=== PATIENT | female | born 2005 | race Caucasian/White ===

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

== ENCOUNTER 2024-05-02 16:33 | Emergency (ER) | payer BC ==
--- OUTSIDE RECORDS SUMMARY | 2024-05-02 16:35 | XMS REPORT | Continuity of Care Document ---
Author Name Unknown Address [address] [place] [address] [facility] Address [address] [place] [address] Care Team Providers Care Transformer Tester Name Role Phone VERONICA GARCIA Primary Care Physician Robyn CHERELLE Pan Attending Clinician Unavailable Cherelle Elizabeth MD Attending Clinician [phone] Unknown, Attending Attending Clinician Unavailab le [id number] Attending Clinician Unavailable RONALDO NOLEN Attending Clinician Unavailable MD JOANN Attending Clinician Unavailab AUSTIN Corcoran Attending Clinician Unavailable SHARAD LEON Attending Clinician Unavailable [email or web address]_Marti Attending Clinician Unavaila WALKER Aggarwal Attending Clinician UnavailPURVI Jackson Attending Clinician Unavailable Sharad Leon MD Attending Clinician [phone] Purvi Dobson PA-C Attending Clinician [phone] Doctor Unassigned, [place] Attending Clinician U MARGAUX Grant Attending Clinician Unavail able Walker Davis MD Attending Clinician [phone] Pob, Adc Lab Main Attending Clinician UnavailCONSUELO Black Attending Clinician Unavailable Consuelo Horowitz MD Attending Clinician [phone], [facility] Attending Clinician Unavailable [email or web address]_S Admitting Clinician Unavaila ble Payers Payer Name Policy Type Policy Number Effective Date Expirati on Date Source [facility] [id number] 2021 00:00:00 BC[employer] 2 [id number] 2023 00:00:00 Problems Condition Name Condition Details Condition Category Status Onset Date Resolution Date Last Treatment Date Treating Clinician Comments Source Weight gain Weight gain Disease Active 09-06 00:00: 00 Cindi griffin Family history of thyroid disease Family history of thyroid disease Disease Active 09-06 00:00: 00 Cindi griffin Nexplanon in place Nexplanon in place Disease Active 2021-0514 00:00: 00 [facility] Simple goiter Simple goiter Disease Active 9-16 00:00: 00 [facility] Elevated TSH Elevated TSH Disease Active 06-24 00:00: 00 [facility] Overweight peds (BMI 85-94.9 percentile ) Overweight peds (BMI 85-94.9 percentile ) Disease Active 06-24 00:00: 00 [facility] Family history of hypothyroi dism Family history of hypothyroi dism Disease Active 06-24 00:00: 00 [facility] Family history of autoimmune disorder Family history of autoimmune disorder Disease Active 06-24 00:00: 00 [facility] Allergies, Adverse Reactions, Alerts Allergy Name Allergy Type Status Severity Reaction(s) Onset Date Inactive Date Treating Clinician Comments Source NO KNOWN ALLERGIE S Drug Class Active [facility] Social History Social Habit Start Date Stop Date Quantity Comments Source [facility] of tobacco use Cigarette Smoker Cindi hernandez - External Alcoholic beverage intake 2024-01-09 00:00:00 2024-01-09 00:00:00 0 /d [facility] History of Social function 2024-01-09 00:00:00 2024-01-09 00:00:00 [facility] Alcohol Comment 2023-09-07 00:00:00 2023-09-07 00:00:00 ocassionally Cindi Mann - External Exposure to SARS-CoV-2 (event) 2022-04-10 00:00:00 2022-04-20 11:31:00 Not sure [facility] Alcohol intake 2022-04-20 00:00:00 2022-04-20 00:00:00 0 /d [facility] Tobacco use and exposure 2022-01-21 00:00:00 2022-01-21 00:00:00 Smokeless tobacco non-user [facility] Sex assigned at 2005 00:00:00 2005 00:00:00 Bobbi Mann - Alejandra Smoking Status Start Date Stop Date Source Smokes tobacco daily 2023-09-07 00:00:00 Cindi Mann - Alejandra Never smoked tobacco [facility] Medications Ordered Medication Name Filled Medication Name Start Date Stop Date Current Medication? Ordering Clinician Indication Dosage Frequency Signature (SIG) Comments Components Source Nitrofurant oin&Nit. Macrocryst 100 mg capsule 01-08 00:00: 00 01-14 04:59 :00 No [id number] 100mg Take 1 capsule by mouth in the morning and 1 capsule in the evening. Do all this for 5 days. [facility] etonogestre L (NEXPLANON) implant 68 mg 2021-05 20:15: 00 04-20 19:24 :00 No [id number] 68mg [facility] levothyroxi ne 50 mcg tablet 01-21 10:51: 52 01-21 00:00 :00 No 50ug Take 50 mcg by mouth every morning. [facility] norgestimat e-ethinyl estradioL 0.25-35 mg-mcg per tablet 06-10 00:00: 00 04-20 00:00 :00 No [id number] 1{tbl} Take 1 tablet by mouth daily. [facility] Vital Signs Vital Name Observation Time Observation Value Comments S our Systolic blood pressure 2024-01-09 23:54:00 149 mm[Hg] [facility] Diastolic blood pressure 2024-01-09 23:54:00 88 mm[Hg] [facility] Heart rate 2024-01-09 23:52:00 138 /[facility] Body temperature 2024-01-09 23:52:00 36.83 Kiki [facility] Respiratory rate 2024-01-09 23:52:00 20 /min [facility] Body height 2024-01-09 23:52:[address] [facility] Body weight 2024-01-09 23:52:[address] [facility] BMI 2024-01-09 23:52:00 24.51 kg/m2 [facility] Oxygen saturation in Arterial blood by Pulse oximetry 2024-01-09 23:52:00 97 /min [facility] Systolic blood pressure 2023-09-07 14:34:00 144 mm[Hg] Cindi Nashybo ld - External Diastolic blood pressure 2023-09-07 14:34:00 74 mm[Hg] Cindi Nashybo ld - External Heart rate 2023-09-07 14:34:00 104 /min Kel y Seybold - External Respiratory rate 2023-09-07 14:34:00 16 /min Cindi Nashybold - External Body height 2023-09-07 14:34:00 160 cm Camila demarco Seybold - External Body weight 2023-09-07 14:34:00 70.308 kg Camila demarco Seybold - External BMI 2023-09-07 14:34:00 27.46 kg/m2 Camila demarco Seybold - External Systolic blood pressure 2022-04-20 17:51:00 122 mm[Hg] [facility] Diastolic blood pressure 2022-04-20 17:51:00 80 mm[Hg] [facility] Heart rate 2022-04-20 17:51:00 96 /min [facility] acute hospital Body temperature 2022-04-20 17:51:00 36.72 Kiki [facility] Respiratory rate 2022-04-20 17:51:00 18 /min [facility] Body height 2022-04-20 17:51:[address] [facility] Body weight 2022-04-20 17:51:[address] [facility] BMI 2022-04-20 17:51:00 20.90 kg/m2 [facility] Systolic blood pressure 2022-04-18 17:26:00 113 mm[Hg] [facility] Diastolic blood pressure 2022-04-18 17:26:00 72 mm[Hg] [facility] Heart rate 2022-04-18 17:26:00 59 /min [facility] Body temperature 2022-04-18 17:26:00 37 Kiki [facility] Respiratory rate 2022-04-18 17:26:00 18 /min [facility] Body height 2022-04-18 17:26:[address] [facility] Body weight 2022-04-18 17:26:[address] [facility] BMI 2022-04-18 17:26:00 21.26 kg/m2 [facility] Systolic blood pressure 2022-01-21 15:19:00 136 mm[Hg] [facility] Diastolic blood pressure 2022-01-21 15:19:00 86 mm[Hg] [facility] Heart rate 2022-01-21 15:19:00 76 /min [facility] acute hospital Respiratory rate 2022-01-21 15:19:00 16 /min [facility] Body height 2022-01-21 15:19:[address] [facility] Body weight 2022-01-21 15:19:[address] [facility] BMI 2022-01-21 15:19:00 20.58 kg/m2 [facility] Body mass index (BMI) [Percentile] Per age and sex 2022-01-21 15:19:00 37.85 % [facility] Oxygen saturation in Arterial blood by Pulse oximetry 2022-01-21 15:19:00 99 /min [facility] Procedures Procedure Date / Time Performed Performing Clinicia n Source POCT TEST 2024-01-10 00:33:00 Cherelle Elizabeth [facility] POCT TEST 2022-04-20 00:00:00 Sharad Leon [facility] ASSIGNMENT OF BENEFITS 2022-04-18 16:58:24 Docto r Unassigned, [place] [facility] Encounters Start Date/Time End Date/Time Encounter Type Admission Type Attending [facility] Care Facility Care Department Encounter ID Source 2024-01-09 18:40:00 2024-01-09 19:11:00 Outpatient R CHERELLE ELIZABETH [facility] [id number] [facility] 2024-01-09 18:40:00 2024-01-09 19:11:00 Urgent Care Cherelle Elizabeth Unknown, Attending [facility] 1.2.840.114 350.1.13.10 4.2.7.2.686 [id number] [facility] 2024-01-09 18:20:00 2024-01-09 18:20:00 Outpatient R [facility] [id number] [facility] 2023-09-07 10:15:00 2023-09-07 10:15:00 Outpatient [id number] CINDI SANDOVAL [id number] [facility] 2023-09-07 09:30:00 2023-09-07 09:30:00 Outpatient RONALDO NOLEN [id number] [facility] 2023-09-07 00:00:00 2023-09-07 00:00:00 Outpatient MD CINDI MONTERROSO [id number] [facility] 2023-09-05 15:00:00 2023-09-05 15:00:00 Outpatient AUSTIN BONNER [id number] [facility] 2023-09-04 14:00:00 2023-09-04 14:00:00 Outpatient AUSTIN BONNER [id number] [facility] 2023-03-08 00:00:00 2023-03-08 00:00:00 Outpatient GC_GCBZW_Ka Ivy STOVALL PRIV [id number] [facility] 2022-07-21 14:00:00 2022-07-21 14:00:00 Outpatient WALKER ZHANG [facility] [id number] [facility] 2022-06-14 14:30:00 2022-06-14 14:30:00 [facility] [id number] [facility] 2022-04-20 11:00:00 2022-04-20 11:30:00 [facility] 1.2.840.114 350.1.13.10 4.2.7.2.686 [id number] [facility] 2022-04-20 11:00:00 2022-04-20 11:00:00 Outpatient SHARAD LAMAS [facility] [id number] [facility] 2022-04-18 11:15:00 2022-04-18 12:07:27 Outpatient Daysi DOBSON [facility] [id number] [facility] 2022-04-18 11:15:00 2022-04-18 12:07:27 [facility] 1.2.840.114 350.1.13.10 4.2.7.2.686 [id number] [facility] 2022-04-18 00:00:00 2022-04-18 00:00:00 Orders Only Doctor Unassigned, [place] [facility] 1..840.114 350.1.13.10 4.2.7.2.686 [id number] [facility] 2022-03-04 11:00:00 2022-03-04 11:00:00 Outpatient MARGAUX CHAIDEZ [facility] [id number] [facility] 2022-02-08 00:00:00 2022-02-08 00:00:00 Refill PriscilaPurvi avery [facility] 1.2.840.114 350.1.13.10 4.2.7.2.686 [id number] 134 [id number] [facility] 2022-01-21 10:30:00 2022-01-21 11:00:00 Office Visit Walker Davis [facility] 1.2.840.114 350.1.13.10 4.2.7.2.686 [id number] [facility] 2022-01-21 10:30:00 2022-01-21 10:30:00 Outpatient R WALKER DAVIS [facility] [id number] [facility] 2021-12-23 00:00:00 2021-12-23 00:00:00 Orders Only Doctor Unassigned, [place] [facility] 1.2.840.114 350.1.13.10 4.2.7.2.686 [id number] [facility] 2021-12-07 00:00:00 2021-12-07 00:00:00 Telephone Purvi Dobson [facility] 1.2.840.114 350.1.13.10 4.2.7.2.686 [id number] 134 [id number] [facility] 2021-09-17 00:00:00 2021-09-17 00:00:00 Telephone Purvi Dobson [facility] 1.2.840.114 350.1.13.10 4.2.7.2.686 [id number] 134 [id number] [facility] 2021-09-17 00:00:00 2021-09-17 00:00:00 Telephone Nate [facility] BUILDING 1.2.840.114 350.1.13.10 4.2.7.2.686 [id number] 134 [id number] [facility] 2021-08-25 14:30:00 2021-08-25 15:09:31 Office Visit Purvi Dobson [facility] 1.2.840.114 350.1.13.10 4.2.7.2.686 [id number] 134 [id number] [facility] 2021-08-25 14:30:00 2021-08-25 15:09:31 Outpatient R PURVI DOBSON [facility] [id number] [facility] 2021-08-25 14:30:00 2021-08-25 14:30:00 Outpatient R PURVI DOBSON [facility] [id number] [facility] 2021-08-25 00:00:00 2021-08-25 00:00:00 Letter (Out) Purvi Dobson [facility] 1.2.840.114 350.1.13.10 4.2.7.2.686 [id number] [facility] 2021-07-27 16:45:00 2021-07-27 17:00:00 Computer Operations Specialist Visit Pob, Adc Lab Main Purvi Dobson [facility] BUILDING 1.2.840.114 350.1.13.10 4.2.7.2.686 [id number] [facility] 2021-07-27 14:30:00 2021-07-27 15:23:37 [facility] [id number] [facility] 2021-07-27 14:30:00 2021-07-27 15:23:37 Office Visit Purvi Dobson [facility] 1.2.840.114 350.1.13.10 4.2.7.2.686 [id number] 134 [id number] [facility] 2021-07-27 14:30:00 2021-07-27 15:23:37 Outpatient R PURVI DOBSON [facility] [id number] [facility] 2021-07-27 00:00:00 2021-07-27 00:00:00 Letter (Out) Purvi Dobson [facility] 1.2.840.114 350.1.13.10 4.2.7.2.686 [id number] 134 [id number] [facility] 2021-07-15 00:00:00 2021-07-15 00:00:00 Telephone Purvi Dobson [facility] 1.2840.114 350.1.13.10 4.2.7.2.686 [id number] [facility] 2021-06-10 15:00:00 2021-06-10 15:47:06 Outpatient R PURVI DOBSON [facility] [id number] [facility] 2021-06-10 15:00:00 2021-06-10 15:47:06 Office Visit Purvi Dboson [facility] 1.284.114 350.1.13.10 4.2.7.2.686 [id number] [facility] 2021-06-10 00:00:00 2021-06-10 00:00:00 Letter (Out) Purvi Dobson [facility] 1.2.840.114 350.1.13.10 4.2.7.2.686 [id number] [facility] 2021-06-10 00:00:00 2021-06-10 00:00:00 Orders Only Doctor Unassigned, [place] [facility] 1.2.840.114 350.1.13.10 4.2.7.2.686 [id number] [facility] 2021-04-12 10:01:44 2021-04-12 10:25:03 Office Visit Purvi Dobson [facility] 1.2.840.114 350.1.13.10 4.2.7.2.686 [id number] [facility] 2021-04-12 10:00:00 2021-04-12 10:25:03 Outpatient R DARYLROCIOPURVI AVERY [facility] [id number] [facility] 2021-04-12 10:00:00 2021-04-12 10:00:00 Out[facility]LLO [facility] [id number] [facility] 2021-04-12 00:00:00 2021-04-12 00:00:00 Letter (Out) Purvi Dobson [facility] 1.2.840.114 350.1.13.10 4.2.7.2.686 [id number] [facility] 2021-04-06 10:00:00 2021-04-06 10:00:00 Outpatient CONSUELO NUÑEZ [facility] [id number] [facility] 2021-03-11 00:00:00 2021-03-11 00:00:00 Telephone DarylPurvi desai [facility] 1.2.840.114 350.1.13.10 4.2.7.2.686 [id number] [facility] 2021-03-10 09:14:29 2021-03-10 09:50:26 Office Visit Purvi Dobson Vivian L [facility] 1.2.840.114 350.1.13.10 4.2.7.2.686 [id number] [facility] 2021-03-10 09:00:00 2021-03-10 09:50:26 Outpatient CONSUELO NUÑEZ [facility] [id number] [facility] 2021-03-10 00:00:00 2021-03-10 00:00:00 Letter (Out) Purvi Dobson [facility] 1.2.840.114 350.1.13.10 4.2.7.2.686 [id number] [facility] 2020-10-08 00:00:00 2020-10-08 00:00:00 Telephone AdConsuelo mack [facility] 1.2.840.114 350.1.13.10 4.2.7.2.686 [id number] [facility] 2020-10-01 15:00:00 2020-10-01 15:00:00 Outpatient R [facility] [id number] [facility] 2020-09-30 13:30:00 2020-09-30 13:30:00 Outpatient R [facility] [id number] [facility] 2020-09-30 13:05:17 2020-09-30 13:20:17 Computer Operations Specialist Visit 2, Adc Lab Consuelo Horowitz [facility] 1.2.840.114 350.1.13.10 4.2.7.2.686 [id number] [facility] 2020-09-29 14:58:08 2020-09-29 17:15:27 Office Visit Consuelo Horowitz [facility] 1.2.840.114 350.1.13.10 4.2.7.2.686 [id number] 134 [id number] [facility] 2020-09-29 15:00:00 2020-09-29 15:00:00 Outpatient R [facility] [id number] [facility] 2020-09-29 00:00:00 2020-09-29 00:00:00 Orders Only Doctor Unassigned, [place] [facility] 1.2.840.114 350.1.13.10 4.2.7.2.686 [id number] [facility] 2020-09-29 00:00:00 2020-09-29 00:00:00 Letter (Out) Doctor Unassigned, [place] [facility] 1.2.840.114 350.1.13.10 4.2.7.2.686 [id number] [facility] Results Test Description Test Time Test Comments Results Result Co mments Source [id number]:09:00* Test Item Value Reference Range Interpretation Comme nts POCT PREG (test code = 1605) Negative On board controls acceptable with C Line (test code = 3574) Yes POCT PREG LOT # (test code = 3575) POCT PREG TEST DATE ( test code = 3576) [facility] [id number] 19:09:00* Test Item Value Reference Range Interpretation Comme nts POCT PREG (test code = 1605) Negative On board controls acceptable with C Line (test code = 3574) Yes POCT PREG LOT # (test code = 3575) POCT PREG TEST DATE ( test code = 3576) [facility]
--- NOTE | 2024-05-02 18:06 | RAD REPORT ---
EXAM: XR RIGHT HAND HISTORY: Pain. R hand injury COMPARISON: None TECHNIQUE: Multiple projections of the right hand submitted. FINDINGS: No evidence of acute fracture or dislocation. Joint alignment is maintained. Mild dorsal s oft tissue swelling.
--- NOTE | 2024-05-02 18:09 | ER ---
Nurse's Notes [facility] Name: Roseanne Day Age: 19 yrs Sex: Female : 2005 Arrival Date: 05/02/2024 Time: 16:33 Bed DX3 Private MD: Diagnosis: Hand Contusion Presentation: 05/02 17:21 Chief complaint: Patient states: right wrist and arm pain onset yesterday. pt noted to cm10 have swelling and bruising to right arm. Coronavirus screen: Client denies travel out of the [place] in the last 14 days. Ebola Screen: Patient denies travel to an Ebola-affected area in the 21 days before illness onset. No symptoms or risks identified at this time. Initial Sepsis Screen: Does the patient meet any 2 criteria? HR > 90 bpm. Initial Sepsis Screen: Does the patient have a suspected source of infection? No. Patient's initial sepsis screen is negative. Risk Assessment: Do you want to hurt yourself or someone else? Patient reports no desire to harm self or others. Onset of symptoms was May 01, 2024. 17:21 Method Of Arrival: Ambulatory 10 17:21 Acuity: RYAN 4 cm10 Triage Assessment: 17:24 General: Appears in no apparent distress. uncomfortable, Behavior is calm, cooperative. cm10 Neuro: No deficits noted. Level of Consciousness is awake, alert, obeys commands, Oriented to person, place, time, situation, Appropriate for age. Respiratory: No deficits noted. Airway is patent Respiratory effort is even, unlabored, Respiratory pattern is regular, symmetrical. Historical: - Allergies: 17:24 No Known Allergies; cm10 - Home Meds: 17:24 None [Active]; cm10 - PMHx: 17:24 None; cm10 - PSHx: 17:24 None; cm10 - Immunization history:: Adult Immunizations up to date. - Infectious Disease History:: Denies. - Social history:: Smoking status: Reported history of juuling and/or vaping. Screenin:16 [facility] ED Fall Risk Assessment (Adult) History of falling in the last 3 months, iw including since admission No falls in past 3 months (0 pts) Confusion or Disorientation No (0 pts) Intoxicated or Sedated No (0 pts) Impaired Gait No (0 pts) Mobility Assist Device Used No (0 pt) Altered Elimination No (0 pt) Score/Fall Risk Level 0 - 2 = Low Risk Oriented to surroundings, Maintained a safe environment. Abuse screen: Denies threats or abuse. Denies injuries from another. Nutritional screening: No deficits noted. Tuberculosis screening: No symptoms or risk factors identified. Assessment: 18:00 General: Appears in no apparent distress. comfortable, Behavior is calm, cooperative. iw Pain: Complains of pain in right hand. Neuro: Level of Consciousness is awake, alert, obeys commands, Oriented to person, place, time, situation, Moves all extremities. Cardiovascular: Patient's skin is warm and dry. Respiratory: Respiratory effort is even, unlabored, Respiratory pattern is regular. Musculoskeletal: Range of motion: limited in right wrist. Vital Signs: 17:21 BP 139 / 94; Pulse 102; Resp 16; Temp 97.9; Pulse Ox 100% on R/A; Weight 63.5 kg; cm10 Height 5 ft. 2 in. ; Pain 7/10; 17:21 Body Mass Index 25.61 (63.50 kg, 157.48 cm) cm10 17:21 Pain Scale: Adult cm10 ED Course: 16:35 Patient arrived in ED. ra3 16:47 Toni Costa MD is Attending Physician. ec2 17:24 Triage completed. cm10 17:24 Arm band placed on left wrist. Patient placed in waiting room. cm10 17:46 Hand Right 3 View XRAY In Process Unspecified. EDMS 18:00 Patient has correct armband on for positive identification. Provided Education on: . iw 18:09 Linda Loaiza RN is Primary Nurse. iw 18:16 No provider procedures requiring assistance completed. Patient did not have IV access iw during this emergency room visit. Administered Medications: No medications were administered Medication: 18:16 VIS not applicable for this client. iw Outcome: 18:08 Discharge ordered by . ec2 18:16 Discharged to home ambulatory, iw 18:16 Condition: good 18:16 Discharge instructions given to patient, Instructed on discharge instructions, follow up and referral plans. Demonstrated understanding of instructions, follow-up care, 18:17 Patient left the ED. iw Signatures: Dispatcher [employer] [facility] Linda Loiaza RN RN iw Martinez, Clarissa, RN RN 10 Toni Costa MD MD ec2 Gill, Christie ra3
--- NOTE | 2024-05-02 18:09 | EDPHYS ---
Physician Documentation [facility] Name: Roseanne Day Age: 19 yrs Sex: Female : 2005 Arrival Date: 05/02/2024 Time: 16:33 Bed DX3 Private MD: ED Physician Toni Costa HPI: 05/02 17:25 This 19 yrs old Female presents to ER via Ambulatory with complaints of Hand ec2 Injury - right. 17:25 Arrives today after injuring her hand after striking it against a surface. No other ec2 concerns. Complained of pain and swelling at the right hand and wrist.. Historical: - Allergies: 17:24 No Known Allergies; cm10 - Home Meds: 17:24 None [Active]; cm10 - PMHx: 17:24 None; cm10 - PSHx: 17:24 None; cm10 - Immunization history:: Adult Immunizations up to date. - Infectious Disease History:: Denies. - Social history:: Smoking status: Reported history of juuling and/or vaping. ROS: 17:25 Constitutional: as per hpi ec2 Exam: 17:25 Constitutional: GEN: NAD Head: atraumatic Eyes: EOMI Ears: External ears are ec2 normal. CV: regular rate LUNGS: no respiratory distress ABD: non-distended SKIN: no evidence of rashes MSK: Right hand with ecchymosis over the medial aspect near the fifth digit, tenderness over the ulna as well. Vital Signs: 17:21 BP 139 / 94; Pulse 102; Resp 16; Temp 97.9; Pulse Ox 100% on R/A; Weight 63.5 kg; cm10 Height 5 ft. 2 in. ; Pain 7/10; 17:21 Body Mass Index 25.61 (63.50 kg, 157.48 cm) cm10 17:21 Pain Scale: Adult cm10 MDM: 16:49 Medical Screening Exam initiated ec2 17:25 Data reviewed: vital signs, nurses notes. ED course: Patient arrives today for ec2 evaluation of right hand and wrist swelling and pain. Examination yields MSK findings as above. Will obtain radiographs of the wrist and hand. Suspect contusion versus possible fracture, doubt dislocation.. 18:08 ED course: And x-ray independently reviewed and interpreted by me, shows no bony ec2 fracture.Will d/c to home, return precautions given,. . 05/02 16:47 Order name: Hand Right 3 View XRAY; Complete Time: 18:08 ec2 Administered Medications: No medications were administered Disposition Summary: 05/02/24 18:08 Discharge Ordered Notes: Location: Home ec2 Condition: Stable ec2 Diagnosis - Hand Contusion ec2 Followup: ec2 - With: Private Physician - When: - Reason: Re-evaluation by your physician Discharge Instructions: - Discharge Summary Sheet ec2 - Hematoma, [id number] ec2 Forms: - Medication Reconciliation Form ec2 - Antibiotic Education ec2 - Prescription Opioid Use ec2 - Patient Portal Instructions ec2 - Leadership Thank You Letter ec2 Signatures: Dispatcher [employer] Preethi Doyle RN RN cm10 Toni Costa MD MD ec2 Corrections: (The following items were deleted from the chart) 17:44 17:25 Wrist Right 3 View+RAD.RAD.BRZ ordered. JAIMIE ETIENNE
[2024-05-02 18:52] VITALS: BP 139/94; TEMP 97.9; O2SAT 100
== END 2024-05-02 18:17 | disposition home or self-care (01) ==
LOC: ER 16:33
DX: S60.221A Contusion of right hand, initial encounter (principal)
CPT/HCPCS: 99282